=== PATIENT | female | born 1970 | race Caucasian/White ===

== ENCOUNTER 2018-12-14 14:59 | Outpatient (REF) | payer BC, SELFPAY ==
[2018-12-14 20:32] LABS: Abs Immature Grans 0.02 k/cumm (0.0-0.09); Absolute Basophil Count 0.05 k/cumm (0.0-0.2); Absolute Eosinophil Count 0.04 k/cumm (0.0-0.7); Absolute Lymphocyte Count 1.42 k/cumm (1.2-3.4); Absolute Monocyte Count 0.68 k/cumm (0.11-0.7); Basophils % 0.8; Eosinophils % 0.7; Immature Grans % 0.3; Mean Corp. HGB Concentration 25.8 g/dL (32.0-36.0); Mean Corpuscular Hemoglobin 15.8 pg (27.0-33.0); Mean Corpuscular Volume 61.5 fL (80-95); Mean Platelet Volume 10.7 fL (8.0-11.0); Monocytes % 11.5; Neutrophils % 62.7; Platelet Count 386 x1000/uL (130-400); RBC 3.22 m/cumm (4.00-5.20); RBC Distribution Width 18.7 % (11.7-14.6); White Blood Cell Count 5.91 k/cumm (4.4-10.8)
[2018-12-14 20:54] LABS: HCT 19.8 % (36.0-46.0); HGB 5.1 g/dL (12.0-15.5)
[2018-12-14 20:59] LABS: ALT 18 U/L (12-78); AST 9 U/L (15-37); Alkaline Phosphatase 59 U/L (46-116); Anion Gap 11.7 mmol/L (3-11); BUN 21 mg/dL (7-18); Bilirubin, Total 0.3 mg/dL (0.2-1.0); CO2 24.3 mmol/L (21.0-32.0); CREATININE 0.76 mg/dL (0.55-1.02); Calcium 8.8 mg/dL (8.5-10.1); Chloride 104 mmol/L (98-107); Glucose 80 mg/dL (70-100); Lipase 88 U/L (73-393); Sodium 140 mmol/L (136-145); TSH 2.41 uIU/mL (0.36-3.74); Total Protein 7.2 g/dL (6.4-8.2)
[2018-12-14 22:00] LABS: Diff Comment RBC Morph Reviewed
[2018-12-14 22:01] LABS: Anisocytosis 3+; Hypochromasia 3+; Microcytosis 3+
[2018-12-14 22:02] LABS: Poikilocytes 2+; Stomatocytes 2+
== END 2018-12-14 15:19 ==
LOC: NCHCN 14:59
PROVIDERS: PCP Nurse Practitioner Family; Visit Provider Nurse Practitioner Family
DX: R10.9 Unspecified abdominal pain (principal)
CPT/HCPCS: 80053; 83690; 84443; 85025

== ENCOUNTER 2019-04-05 15:51 | Outpatient (REF) | payer BC, SELFPAY ==
[2019-04-05 19:14] LABS: Abs Immature Grans 0.02 k/cumm (0.0-0.09); Absolute Basophil Count 0.05 k/cumm (0.0-0.2); Absolute Eosinophil Count 0.18 k/cumm (0.0-0.7); Absolute Lymphocyte Count 1.88 k/cumm (1.2-3.4); Absolute Monocyte Count 0.96 k/cumm (0.11-0.7); Absolute Neutrophil Count 6.36 k/cumm (1.2-6.7); Basophils % 0.5; Eosinophils % 1.9; HCT 41.7 % (36.0-46.0); HGB 13.5 g/dL (12.0-15.5); Immature Grans % 0.2; Lymphocytes % 19.9; Mean Corp. HGB Concentration 32.4 g/dL (32.0-36.0); Mean Corpuscular Hemoglobin 29.5 pg (27.0-33.0); Mean Platelet Volume 10.8 fL (8.0-11.0); Monocytes % 10.2; Neutrophils % 67.3; Platelet Count 303 x1000/uL (130-400); RBC 4.58 m/cumm (4.00-5.20); RBC Distribution Width 14.1 % (11.7-14.6); White Blood Cell Count 9.45 k/cumm (4.4-10.8)
[2019-04-05 19:27] LABS: Iron 160 ug/dL (50-170); Total Iron Binding Capacity 348 ug/dL (250-450); Transferrin Sat 46 % (15-50)
[2019-04-05 19:38] LABS: Anion Gap 7.9 mmol/L (3-11); BUN 21 mg/dL (7-18); CO2 29.1 mmol/L (21.0-32.0); CREATININE 0.78 mg/dL (0.55-1.02); Calcium 9.4 mg/dL (8.5-10.1); Chloride 103 mmol/L (98-107); Glucose 90 mg/dL (74-106); Potassium 4.4 mmol/L (3.5-5.1); Sodium 140 mmol/L (136-145); TSH 2.18 uIU/mL (0.36-3.74)
== END 2019-04-05 16:11 ==
LOC: NCHCN 15:51
PROVIDERS: PCP Nurse Practitioner Family; Visit Provider Nurse Practitioner Family
DX: R42 Dizziness and giddiness (principal); Z86.2 Personal history of diseases of the blood and blood-forming organs and certain disorders involving the immune mechanism
CPT/HCPCS: 80048; 83540; 83550; 84443; 85025

== ENCOUNTER 2023-07-26 20:29 | Outpatient (REF) | payer BC, SELFPAY ==
[2023-07-26 21:24] LABS: Anion Gap 8.3 mmol/L (3-11); BUN 24 mg/dL (7-18); CO2 28.7 mmol/L (21.0-32.0); CREATININE 0.9 mg/dL (0.55-1.02); Calcium 9.8 mg/dL (8.5-10.1); Calculated LDL 187 mg/dL (<100); Chloride 103 mmol/L (98-107); Cholesterol 274 mg/dL (<200); Estimated GFR 75.97 (mL/min/1.73m2); Glucose 95 mg/dL (74-106); HDL Cholesterol 66 mg/dL (40-60); Potassium 4.2 mmol/L (3.5-5.1); Sodium 140 mmol/L (136-145); Triglyceride 106 mg/dL (<150)
== END 2023-07-26 20:30 | disposition home or self-care (01) ==
LOC: NCHCN 20:29
PROVIDERS: PCP Nurse Practitioner Family; Visit Provider Family Medicine
DX: E66.8 Other obesity (principal); Z68.32 Body mass index [BMI] 32.0-32.9, adult
CPT/HCPCS: 80048; 80061

== ENCOUNTER 2024-07-27 08:52 | Outpatient (REF) | payer BC, SELFPAY ==
[2024-07-27 15:32] LABS: Calculated LDL 119 mg/dL (<100); Cholesterol 205 mg/dL (<200); HDL Cholesterol 74 mg/dL (>or=50); Triglyceride 64 mg/dL (<150)
[2024-07-27 22:37] LABS: HIV-1/2 Ag & Ab Screen Negative (Negative)
[2024-07-27 23:04] LABS: Hepatitis C Ab w Rflx HCV PCR Negative (Negative)
[2024-07-28 11:34] LABS: Varicella IgG Antibody Negative (See Note)
== END 2024-07-27 08:53 | disposition home or self-care (01) ==
LOC: NCHCN 08:52
PROVIDERS: PCP Nurse Practitioner Family; Visit Provider Family Medicine
DX: Z11.4 Encounter for screening for human immunodeficiency virus [HIV] (principal); E78.5 Hyperlipidemia, unspecified; Z78.9 Other specified health status; Z11.59 Encounter for screening for other viral diseases
CPT/HCPCS: 80061; 86787; 86803; 87389